=== PATIENT | female | born 1945 | race Caucasian/White ===

== ENCOUNTER 2017-06-19 11:01 | Observation (INO) | payer MEDICARE ==
--- OUTSIDE RECORDS SUMMARY | 2017-06-19 11:27 | XMS REPORT ---
:1945 External Reference #:[id number] Author Organization [facility] Address [address] [address] Phone [phone] Care Team Providers Name Role Phone Cata Holland MD Primary Care Physician Unavailable Payers Type Date Identification Payment Subscriber Numbers Provider Health Maintenance Effective: Policy Number: Medicare Ha Ramos ([facility]) 05/04/2012 [id number] o Group Number: [id number] [address] [address] PayID: [id number] [place] [address] Problems Date Description Provider Status Onset: 08/09/2014 Essential tremor Uzma Moss M.D. Active Family History Date Family Member(s) Problem(s) Comments General Heart Disease General Cancer Social History Type Date Description Comments Lives With Spouse Occupation Telecommunication Lines Repairer ETOH Use Denies alcohol use Smoking Patient has never smoked Exercise Type/Frequency Exercises regularly Allergies, Adverse Reactions, Alerts Date Description Reaction Status Severity Comments 05/17/2014 Antivenin active 06/05/2017 Epinephrine active 06/13/2013 NKDA inactive 05/17/2014 NKDA inactive 06/05/2017 NKDA inactive Medications Medication Date Status Form Strength Qnty SIG Indications Ordering Provider Primidone 06/05/ Active Tablets 50mg 30tabs take 05/05 G25.0 Uzma 2018 tablet by jeffrey Moss at M.D. bedtime, may increase to 1 tablet at bedtime Levothyroxine / Active Tablets 88mcg 1 PO qd Unknown Sodium 0000 Metoprolol / Active Tablets ER 12.5mg 1 PO qd Unknown Succinate ER 0000 24HR Lutein / Active Tablets 10mg by mouth Unknown 0000 daily Glucosamine / Active Capsules 1500Com 1 po qd Unknown Chondroitin 0000 1500 Complex Vitamin B-12 CR / Active Tablets ER 1000mcg 1 po qd Unknown 0000 Red Yeast Rice / Active Capsules 600mg 1 by mouth Unknown 0000 twice a day Levothyroxine / Active Tablets 88mcg 1/2 tab by Unknown Sodium 0000 mouth once a week Vitamin D / Active Tablets ?Dose 1 tab by Unknown 0000 mouth everyday Allergy / Active Capsules ?Dose Unknown Medication 0000 Percocet 07/11/ Hx Tablets 5-325mg 60tabs 1-2 tabs Andrew 2014 - by mouth Braulio 08/08/ q4-6 hours M.D. 2014 as needed pain Pantoprazole / Hx Tablets DR 40mg 1 PO qd Unknown Sodium - 2014 Langley 3 / Hx Capsules 1200mg 90caps po qd Unknown - 2017 Aspirin / Hx Tablets 81mg 1 po qd Unknown - 2014 Vital Signs Date Vital Result Comment 06/05/2017 Height 64 inches 5'4" Weight 142.00 lb w/shoes Heart Rate 76 /min BP Systolic Sitting 118 mmHg LA reg cuff BP Diastolic Sitting 64 mmHg LA reg cuff Respiratory Rate 20 /min BMI (Body Mass Index) 24.4 kg/m2 10/31/2014 Height 64 inches 5'4" Weight 144.00 lb Pain Level 3 with certain movement BMI (Body Mass Index) 24.7 kg/m2 08/31/2014 Height 64 inches 5'4" Weight 144.00 lb Pain Level 3 BMI (Body Mass Index) 24.7 kg/m2 08/09/2014 Height 64 inches 5'4" Weight 144.00 lb Heart Rate 68 /min BP Systolic Sitting 112 mmHg BP Diastolic Sitting 66 mmHg Respiratory Rate 16 /min BMI (Body Mass Index) 24.7 kg/m2 07/31/2014 Height 64 inches 5'4" Weight 135.00 lb Body Temperature 96.5 F BMI (Body Mass Index) 23.2 kg/m2 07/11/2014 Height 64 inches 5'4" Weight 135.00 lb Heart Rate 73 /min BP Systolic 114 mmHg BP Diastolic 70 mmHg BMI (Body Mass Index) 23.2 kg/m2 06/13/2013 Heart Rate 66 /min BP Systolic Sitting 102 mmHg BP Diastolic Sitting 60 mmHg Respiratory Rate 16 /min Results Description No Information Procedures Date CPT Code Description Status 07/21/2014 90572 Arthroscopy Shoulder Debridement Extensive Completed 07/21/2014 56705 Arthroscopy Shoulder Debridement Extensive Completed Encounters Type Date Location Provider CPT E/M Dx Office Visit 06/05/2017 [facility] Uzma Moss M.D. 58305 G25.0 9:00a [facility] Office Visit 10/31/2014 [facility] M.D. 25380 V54.89 2:15p [facility] Office Visit 08/09/2014 [facility] Uzma Moss M.D. 57675 333.1 3:45p [facility] Office Visit 05/22/2014 [facility] M.D. 36853 840.4 9:00a [facility] Office Visit 06/13/2013 [facility] Uzma Moss M.D. 10180 333.1 11:00a [facility] 389.9 Office Visit 06/14/2012 11:15a [facility] Uzma Moss M.D. 04429 333.1 [facility] Plan of Care Future Appointment(s):09/24/2017 10:30 am - Uzma Moss M.D. at [facility]06/05/2017 - Uzma Moss M.D.G25.0 Essential tremorNew Medication:Primidone 50 mgFollow up:3-4 months
[2017-06-19] MEDS ORDERED: Nitroglycerin TAB 0.4 MG* 0.4 MG TAB SL ONE (11:28)
[2017-06-19] MEDS ORDERED: Aspirin Low Dose CHEW TAB* 81 MG PO ONE (11:28)
--- NOTE | 2017-06-19 11:41 | RAD ---
HISTORY: Chest pain COMPARISONS: None VIEWS: 1: frontal portable view of the chest at 11:25 AM FINDINGS: LINES AND TUBES: None. CARDIOMEDIASTINAL SILHOUETTE: The cardiomediastinal silhouette is normal for portable technique. PLEURA: The costophrenic angles are sharp. No pleural abnormalities are noted. LUNG PARENCHYMA: There is hyperinflation. ABDOMEN: The upper abdomen is clear. There is no subphrenic gas. BONES AND SOFT TISSUES: No bone or soft tissue abnormalities are noted. IMPRESSION: COPD. NO ACTIVE CARDIOPULMONARY DISEASE.
[2017-06-19 11:51] LABS: ABS Basophils 0.1 10^3/ul (0-0.2); ABS Eosinophils 0.1 10^3/ul (0-0.6); ABS Lymphocytes 1.7 10^3/ul (1.0-4.8); ABS Monocytes 0.5 10^3/ul (0-0.8); ABS Neutrophils 3.8 10^3/ul (1.5-7.7); ABS Nucleated RBC 0 10^3/ul; Eosinophil % 1.5 % (0-6); Hematocrit 39 % (35-47); Hemoglobin 13.2 g/dl (12.0-16.0); Lymphocyte % 26.9 % (25-47); Mean Corpuscular HGB Conc 34 g/dl (31-36); Mean Corpuscular Hemoglobin 32 pg (27-31); Mean Corpuscular Volume 95 fL (80-97); Mean Platelet Volume 8 um3 (7.4-10.4); Nucleated Red Blood Cells % 0; Platelet Count 264 10^3/ul (150-450); Red Cell Distribution Width 13 % (10.5-15); White Blood Count 6.2 10^3/ul (3.5-10.8)
[2017-06-19 12:10] LABS: EGFR Non-African American 94.6 (>60)
[2017-06-19] MEDS ORDERED: Nitroglycerin 2% OINT* 1 GM PAK TOPICAL ONE (12:16)
[2017-06-19] MEDS ORDERED: Nitroglycerin TAB 0.4 MG* 0.4 MG TAB SL PRN (14:30)
[2017-06-19] MEDS ORDERED: Acetaminophen TAB* 325 MG PO PRN (14:31)
[2017-06-19] MEDS ORDERED: Ondansetron INJ* 2 MG/ML VIAL IV PRN (14:31)
[2017-06-19] MEDS ORDERED: Enoxaparin(*) 40 MG/0.4 ML SYR SUBCUT SCH (15:00)
[2017-06-19] MEDS: Levothyroxine TAB* 88 MCG TAB PO SCH (20:04)
[2017-06-19] MEDS ORDERED: Primidone TAB(*) 50 MG PO SCH (21:00)
--- NOTE | 2017-06-19 21:43 | HP ---
CC: Dr. Holland; Dr. Escobar * HISTORY AND PHYSICAL: DATE OF ADMISSION: 06/19/17 PRIMARY CARE PROVIDER: Dr. Holland. WAX ENGRAVER: Dr. Escobar. HEALTHCARE PROXY: Her . CODE STATUS: DNR, discussed with patient and her . SOURCE OF INFORMATION: History obtained from interview of patient and her . RELIABILITY: Good. CHIEF COMPLAINT: Chest pain. HISTORY OF PRESENT ILLNESS: This is a 71-year-old female, past medical history most notable for SVT, on low dose metoprolol, who had an episode of plantar fasciitis, from which she became less mobile until approximately the end of May, 05/25/17. She started to walk and exercise again and she started to notice on and off chest pain. She noticed that the pain was most severe when performing maximal exertion such as walking up a steep hill. She also experienced chest pain on one occasion after increased stress. The pain has been described as substernal, aching, radiating to her left neck, not associated with lightheadedness, nausea, vomiting, diaphoresis, loss of consciousness or shortness of breath. She has noticed the pain approximately 3 to 4 times per week, it was most severe on Thursday, had an episode of stress, but has also had it today after walking up a steep hill. The pain lasts for 15 minutes to several hours, but gradually subsides over that time. She has not had such pain prior to the end of May as indicated above. She has noticed chills, but no recent cough, fevers, nausea, vomiting, diarrhea, constipation, urinary symptoms. She had the medication changes to include the addition of primidone approximately 1 week prior to this visit for her tremor. PAST MEDICAL HISTORY: Includes; 1. Hypothyroidism. 2. SVT. 3. Essential tremor. 4. History of rotator cuff tendon repair. 5. Tonsillectomy. 6. Rhinoplasty. 7. Hand tendon repair. 8. Basal cell carcinoma removal from her forehead. MEDICATIONS: Reviewed, include; 1. Lutein 20 mg daily. 2. Glucosamine and chondroitin collagen combination 1 cap daily. 3. Cyanocobalamin 500 mcg daily. 4. Vitamin D 400 units daily. 5. Primidone 50 mg at bedtime. 6. Metoprolol succinate 12.5 mg daily. 7. Cetirizine 10 mg daily. 8. Ascorbic acid 500 mg daily. 9. Synthroid 44 mcg on Saturday and 88 mcg daily. ALLERGIES: ANTI-SNAKE VENOM. FAMILY HISTORY: Father from heart failure at age 67, unclear if ischemic in nature. History of diabetes. SOCIAL HISTORY: No tobacco or illicits. Has smoked marijuana in the past occasionally for pain relief, still practices Rivera-Chi. REVIEW OF SYSTEMS: Include chest pain with exertion, an episode of chills with the chest pain. Otherwise, all other systems reviewed are negative. PHYSICAL EXAMINATION GENERAL: Appears stated age, sitting up in bed, interactive, pleasant, no apparent distress. VITAL SIGNS: When seen by this author, 103/58, heart rate 77, respiratory rate 16, 96% on room air, T-max 98.8. HEENT: Oropharynx is clear. She has moist mucous membranes. Her sclerae are anicteric. NECK: She has JVD 2 inches below the angle of her jaw at 40 degrees. No bruits. LUNGS: Clear to auscultation bilaterally. HEART: Regular rate and rhythm. No murmurs, rubs, or gallops. ABDOMEN: Soft, nontender, nondistended. EXTREMITIES: Warm and well perfused. She has trace lower extremity edema, 2+ peripheral pulses, resting tremor. NEUROLOGIC: Alert and oriented x3. Cranial nerves II through XII are intact. 5/5 strength throughout. LABORATORY DATA: Labs are reviewed, notable for troponin I 0.00. White blood cell count 6.2, hemoglobin 13.2, platelets 264,000. IMAGING: Data reviewed. EKG: Notable for normal sinus rhythm. Normal limit axis. Early R-wave progression. No ST or T-wave changes. Chest x-ray: Impression: COPD with hyperinflation. ASSESSMENT AND PLAN: This is a 71-year-old female presenting with exertional chest pain, new onset at the end of May. 1. Angina: The patient not on an aspirin, has not had the episode twice in the last day, 24 to 48 hours. Does not have multiple risk factors, although she does have a family history, although not early and not known whether is ischemic. I am concerned for cardiac etiology of her chest pain given reproducible pain with exertion. She received full dose aspirin in the emergency room. Continue metoprolol. Trend troponins repeat EKG in the morning. I think she warrants a stress test, although not on an emergent basis , given ongoing nature of this problem and reproducible symptoms. We would plan on discharge home with followup next week for stress test if troponins remain negative, EKG in the morning is unchanged and telemetry monitoring is normal. Would recommend walking the patient prior to discharge to evaluate for recurrent chest pain. Continue aspirin 81 mg as well as metoprolol 12.5 mg. Check fasting lipids in the morning. I discussed this with Dr. Sapp, the on-call sales operations specialist, who is in agreement of plan. 2. Hypothyroidism: Add on TSH and then continue Synthroid on home doses. 3. Supraventricular tachycardia: Continue Toprol as above. 4. Tremor: Continue primidone 50 mg in the evening. 5. DVT prophylaxis: Lovenox. [id number]/[facility] #: [id number] [facility]PITALDe[facility]
[2017-06-20] MEDS ORDERED: Levothyroxine TAB* 88 MCG TAB PO SCH (06:00)
[2017-06-20] MEDS: Levothyroxine TAB* 88 MCG TAB PO SCH (06:16)
[2017-06-20] MEDS ORDERED: Cholecalciferol TAB* 400 UNIT PO SCH (09:00)
[2017-06-20] MEDS ORDERED: Cyanocobalamin TAB* 500 MCG PO SCH (09:00)
[2017-06-20] MEDS ORDERED: Aspirin EC Low Dose* 81 MG TAB.EC PO SCH (09:00)
[2017-06-20] MEDS ORDERED: Cetirizine* 10 MG TAB PO SCH (09:00)
[2017-06-20] MEDS ORDERED: Ascorbic Acid TAB* 500 MG PO SCH (09:00)
[2017-06-20] MEDS ORDERED: Metoprolol Succinate XL TAB* 25 MG PO SCH (09:00)
[2017-06-20 11:18] VITALS: BP 115/67
--- NOTE | 2017-06-21 10:57 | DS ---
CC: Dr. Cata Holland; Dr. Escobar * DISCHARGE SUMMARY: DATE OF ADMISSION: 06/19/17 DATE OF DISCHARGE: 06/20/17 PRIMARY CARE PROVIDER: Cata Holland MD. PRIMARY RIGGING SLINGER: Monty Escobar MD. PROVIDER: Khang Arellano NP. ATTENDING PHYSICIAN: Andrew Oseguera MD * (as dictated by Khang Arellano NP). PRIMARY DISCHARGE DIAGNOSES: 1. Chest pain and angina. 2. EKG changes with T-wave flattening in leads V2 through V4. SECONDARY DISCHARGE DIAGNOSES: 1. Hypothyroidism. 2. Supraventricular tachycardia. 3. Essential tremor. 4. History of rotator cuff tendon repair. 5. Tonsillectomy. 6. Rhinoplasty. 7. Hand tendon repair. 8. Basal carcinoma removal from forehead. MEDICATIONS AT DISCHARGE: 1. Lutein 20 mg daily. 2. Glucosamine/chondroitin combination tablet one capsule daily. 3. Cyanocobalamin 500 mcg daily. 4. Vitamin D 400 units daily. 5. Primidone 50 mg at bedtime. 6. Metoprolol succinate 12.5 mg daily. 7. Cetirizine 10 mg daily. 8. Ascorbic acid 500 mg daily. 9. Levothyroxine 88 mcg daily except for Saturdays when she takes 44 mcg. New medications at discharge: 1. Aspirin 81 mg daily. HOSPITAL COURSE OF STAY: For full details, please refer to the H and P provided by Dr. Valdez, on admission. In summary, this is a 71-year-old female with a past medical history most notable for SVT, on low dose metoprolol who presented to the ER on 06/19/17 with concern for substernal chest pain that radiated to the left neck, that was not associated with lightheadedness, nausea , vomiting, diaphoresis, loss of consciousness, or shortness of breath. The pain is reproducible with exertion and there was concern for cardiac etiology. Other risk factors for the patient includes a family history, although the full details of the family history is unknown as well as 2 episodes within a 24 to 48 -hour. She was previously on aspirin and has no known cardiac history. She denies any history of smoking or hypertension. She was admitted under observation and had 3 negative troponins of 0.00 each time. Her lipid profile on 06/20/17, which was fasting showed triglycerides of 140, cholesterol 182, LDL of 106, and HDL of 47. Her TSH was 1.94. She denied chest pain for her whole stay and states that she has been feeling well and has been requesting to go home. However, her repeat EKG from the morning of 06/20/17 shows these new EKG changes where there are some T-wave inversions seen in leads V2 and V3 as well as flattening in leads V4, V5, and V6. LOUANN score listed the patient a score of 2 for the aforementioned factors of family history and 2 episodes in the preceding time period prior to admission, which does allow for outpatient stress testing. However, given that these EKG changes appeared just prior to discharge, I did express my concern to the patient and offered her to stay for a nuclear medicine test here in the hospital. She declined stating that she would be willing to come back as soon as Thursday for stress test, but we will prefer to go home. She is in understanding of the changes of her EKG and how this may indicate ischemia as well as my concern for her exertional chest pain. We did review warning signs at home, which does include persistent chest pain or chest pain occurring at rest with other symptoms, which were included in her discharge instructions and the patient is in agreement to come back to the ER should these occur while she is at home. She has been advised against any further strenuous activity. I did also review the EKG and limited history and side consult with the on-call tattoo and body artist who was helpful in assisting to get the patient seen at [facility] on Thursday for her stress test. The capsule maker will contact the patient with an appointment time for her on Thursday. Again in the interim period, the patient has been advised against strenuous activity and should be monitored closely at home. No other concerns or reproducible chest pain occurred here in the hospital and the patient is otherwise stable for discharge. She has been advised to continue a low-fat, heart healthy diet for which education was provided and to follow up with her PCP within the week. She should continue baby aspirin. PHYSICAL EXAMINATION: Vital Signs: Upon discharge, temperature 97.6; pulse rate 65; respiratory rate 16; blood pressure 115/67; O2 saturation 100% on room air. General: This is an older female who appears in her stated age. She is ambulating in the room. She is interactive, pleasant, and in no acute distress. HEENT: Head is atraumatic, normo-cephalic. Face is symmetrical. Pupils are equal, round and reactive to light. Extraocular movements are intact. Oral mucosa is moist. There is no oropharyngeal erythema or exudate. Neck: Supple. No lymphadenopathy appreciated. Lungs: Clear to auscultation bilaterally. Cardiac: S1, S2 normal. Regular rate and rhythm. No murmurs, rubs, or gallops. There is trace peripheral edema most notably in the pretibial area. Abdomen: Soft, nontender, and nondistended. Bowel sounds are normoactive. Extremities: No clubbing or cyanosis present. She moves all extremities. Neuro: Alert and oriented x3. Cranial nerves II through XII are grossly intact. Strength is 5/5 throughout and speech is clear. OUTPATIENT FOLLOWUP NEEDS: Again, Ms. Soria is to have a stress test currently and the works to be scheduled for Thursday as an outpatient and the time is pending. The [facility] capsule maker has been contacted and will update myself and the patient what the plan. The patient has been advised to return to the ER , should her symptoms persist or return, or if there is any other concern. DIET: Heart healthy diet. ACTIVITY: No strenuous activity. CONDITION: Stable at this time. DISPOSITION: To home with close followup. TIME SPENT: Time spent on this discharge was approximately 45 minutes. Again, this is only a brief summary of the patient's hospital course of stay. For full details, please refer to the full medical record. If you have any further questions or need further assistance, please feel free to contact me at . KHANG ARELLANO NP [id number]/[facility] #: [id number] ERIN
--- NOTE | 2017-06-21 22:47 | ED ---
Dave Chaudhary Jennifer, scribed for Jorge Shah MD on 06/19/17 at 1128 . HPI Chest Pain - HPI Summary HPI Summary: The patient is a 71 year old female who complains of tightness and pain in the chest that began two days ago. The patient describes that she usually feels chest pain after exercising, but she was stressed two days ago when the pain appeared. She rates the pain a 2 or 3 out of 10 in the ED today. The patient adds that the pain sometimes radiates into the jaw. She additionally complains of chills. The patient denies fever, trouble breathing, and pain or swelling in the legs. - History of Current Complaint Chief Complaint: EDChestPainROMI Time Seen by Provider: 06/19/17 11:17 Hx Obtained From: Patient Onset/Duration: Started Days Ago - two days, Still Present Timing: Intermittent - Goes from tightness to pain Initial Severity: Mild Current Severity: Mild Pain Intensity: 3 Pain Scale Used: 0-10 Numeric Chest Pain Location: Mid Sternal Chest Pain Radiates: Yes Chest Pain Radiates To:: Jaw Character: Tightness Aggravating Factor(s): Exertion Alleviating Factor(s): Nothing Associated Signs and Symptoms: Positive: Negative - fever, trouble breathing, pain or swelling in legs, Chills - Allergy/Home Medications Allergies/Adverse Reactions: Allergies Allergy/AdvReac Type Severity Reaction Status Date / Time ANTI-SNAKE VENOM Allergy WELTS, Uncoded 07/21/14 10:02 SWELLING ENVIRONMENTAL Allergy ITCHY Uncoded 07/21/14 10:02 WATERY EYES, CONGESTION Home Medications: Home Medications Ascorbic Acid TAB* [Vitamin C TAB*] 500 mg PO DAILY 06/19/17 [History Confirmed 06/19/17] Cetirizine* [ZyrTEC 10 MG TAB*] 10 mg PO DAILY 06/19/17 [History Confirmed 06/19] Cholecalciferol TAB* [Vitamin D TAB*] 400 unit PO DAILY 06/19/17 [History Confirmed 06/19/17] Cyanocobalamin TAB* [Vitamin B12 TAB*] 500 mcg PO DAILY 06/19/17 [History Confirmed 06/19/17] Glucosam/Chondr/Collagn/Hyalur [Th Glucosamine/Chondroiti] 1 cap PO DAILY [History Confirmed 06/19/17] Levothyroxine TAB* [Synthroid TAB*] 44 mcg PO .Saturdays06/19/17 [History Confirmed 06/19/17] Lutein 20 mg PO DAILY 06/19/17 [History Confirmed 06/19/17] Metoprolol Succinate XL TAB* [Toprol XL TAB*] 12.5 mg PO DAILY 06/19/17 [ History Confirmed 06/19/17] Primidone TAB(*) [Mysoline TAB(*)] 50 mg PO BEDTIME 06/19/17 [History Confirmed 06/19/17] PMH/Surg Hx/FS Hx/Imm Hx Endocrine/Hematology History: Reports: Hx Thyroid Disease - HYPOTHYROIDISM Denies: Hx Diabetes Cardiovascular History: Denies: Hx Hypertension, Hx Pacemaker/ICD GI History: Reports: Hx Gastroesophageal Reflux Disease - HX OF, NO PROBLEMS NOW , NO MEDS History: Denies: Hx Renal Disease Musculoskeletal History: Reports: Hx Arthritis - BILATERAL HANDS, FINGERS, BIG TOE Denies: Hx Rheumatoid Arthritis, Hx Osteoporosis Sensory History: Reports: Hx Contacts or Glasses - CONTACTS WILL WEAR GLASSES DAY OF SURGERY Denies: Hx Hearing Aid Opthamlomology History: Reports: Hx Contacts or Glasses - CONTACTS WILL WEAR GLASSES DAY OF SURGERY Neurological History: Reports: Other Neuro Impairments/Disorders - HX OF DIZZINESS, NONE RECENTLY Psychiatric History: Denies: Hx Panic Disorder - Cancer History Cancer Type, Location and Year: BASAL CELL CARCINOMA Hx Chemotherapy: No Hx Radiation Therapy: No - Surgical History Surgery Procedure, Year, and Place: PLASTIC SURGERY ON NOSETONSILECTOMY A CHILDLT HAND REPAIR SEVERED TENDONBASAL CELL CARCINOMA REMOVED LT SIDE OF FOREHEAD. Hx Anesthesia Reactions: No Infectious Disease History: No Infectious Disease History: Denies: Traveled Outside the [place] in Last 30 Days - Family History Known Family History: Positive: Cardiac Disease - Father - Social History Alcohol Use: Occasionally Substance Use Type: Reports: Marijuana Substance Use Comment - Amount & Last Used: WEEKLY Smoking Status (MU): Never Smoked Tobacco Review of Systems Positive: Chills. Negative: Fever Negative: Erythema Negative: Sore Throat Positive: Chest Pain Negative: Shortness Of Breath, Cough Negative: Abdominal Pain, Vomiting, Nausea Negative: dysuria, hematuria Negative: Myalgia, Edema Negative: Rash - Dizziness All Other Systems Reviewed And Are Negative: Yes Physical Exam - Summary Physical Exam Summary: Constitutional: Well-developed, Well nourished, Alert. (-) Distressed Skin: Warm, Dry HENT: Normocephalic; Atraumatic Eyes: Conjunctiva normal Neck: Musculoskeletal ROM normal neck. (-) JVD, (-) Stridor, (-) Tracheal deviation Cardio: Rhythm regular, rate normal, Heart sounds normal; Intact distal pulses; The pedal pulses are 2+ and symmetric. Radial pulses are 2+ and symmetric. (-) Murmur Pulmonary/Chest wall: Effort normal. (-) Respiratory distress, (-) Wheezes, (-) Rales Abd: Soft, (-) Tenderness, (-) Distension, (-) Guarding, (-) Rebound Musculoskeletal: (-) Edema Lymph: (-) Cervical adenopathy Neuro: Alert, Oriented x3 Psych: Mood and affect Normal Triage Information Reviewed: Yes Vital Signs On Initial Exam: Initial Vitals Temp Pulse Resp BP Pulse Ox 98.8 F 66 20 133/75 99 06/19/17 11:06 06/19/17 11:06 06/19/17 11:06 06/19/17 11:06 06/19/17 11:06 Vital Signs Reviewed: Yes Diagnostics - Vital Signs Vital Signs Temp Pulse Resp BP Pulse Ox 06/19/17 11:06 98.8 F 66 20 133/75 99 - Laboratory Result Diagrams: 06/19/17 11:35 06/19/17 11:35 Lab Statement: Any lab studies that have been ordered have been reviewed, and results considered in the medical decision making process. - Radiology CXR Xray Interpretation: No Acute Changes - COPD. NO ACTIVE CARDIOPULMONARY DISEASE. Dr. Shah has reviewed this report. Radiology Interpretation Completed By: Radiologist - EKG 11:12 Cardiac Rate: NL EKG Rhythm: Sinus Rhythm - 65 BPM EKG Interpretation: No STEMI Re-Evaluation - Re-Evaluation First Eval Re-Evaluation Time: 12:18 Change: Improved Comment: Chest pain relieved with NTG. Chest Pain Course/Dx - Course Assessment/Plan: The patient is a 71 year old female who complains of tightness and pain in the chest that began two days ago. In the ED course, the patient was given Aspirin and NTG. All of her chest pain is reproducible with exertion. Her chest pain was relieved with NTG. EKG and CXR were obtained. No STEMI currently. The patient is diagnosed with Angina. The patient [place] [facility] [place] - Diagnoses Provider Diagnoses: Angina - Provider Notifications Discussed Care Of Patient With: Gary Valdez Time Discussed With Above Provider: 13:01 Instructed by Provider To: Admit As Inpatient Discharge - Discharge Plan Condition: Good Disposition: ADMITTED TO [facility] Referrals: Cata Holland MD [Primary Care Provider] - The documentation as recorded by the Dave lazo Jennifer accurately reflects the service I personally performed and the decisions made by Pablo alfonso Jerry, MD.
== END 2017-06-20 12:20 | disposition home or self-care (01) ==
LOC: ED 11:01 → MEDTELE 14:31
PROVIDERS: ADMIT Internal Medicine; ATTEND Internal Medicine
DX: I20.9 Angina pectoris, unspecified (principal); R07.9 Chest pain, unspecified; R94.31 Abnormal electrocardiogram [ECG] [EKG]; M72.2 Plantar fascial fibromatosis; R68.83 Chills (without fever); E03.9 Hypothyroidism, unspecified; I47.1 Supraventricular tachycardia; G25.0 Essential tremor; Z98.890 Other specified postprocedural states; Z90.89 Acquired absence of other organs; Z85.828 Personal history of other malignant neoplasm of skin
CPT/HCPCS: 36415; 71045; 80053; 80061; 83605; 84443; 84484; 85025; 93005; 96374; 99284; A9270-GY; G0378; J1650

== ENCOUNTER 2018-02-03 09:59 | Day surgery (SDC) | payer MEDICARE ==
[~2018-02-03 09:59] MED LIST: Acetaminophen TAB* 325 MG PO PRN; Buffered Lidocaine 0.9% SYRIN* 5 ML/SYR SYRINGE INTRADERM ONE
[2018-02-03] MEDS ORDERED: Midazolam* 1 MG/ML 2 ML VIAL (2 MG) ONE (12:23)
[2018-02-03 13:05] VITALS: BP 106/59
[2018-02-03] MEDS ORDERED: Povidone Iodine 5% OPTH* 30 ML BTL ONE (15:45)
[2018-02-03] MEDS ORDERED: Proparacaine 0.5% OPHTH.SOL* 15 ML BTL ONE (15:45)
[2018-02-03] MEDS ORDERED: acetaZOLAMIDE TAB* 250 MG ONE (15:45)
[2018-02-03] MEDS ORDERED: Lidocaine 2% EPI 1:200000 MPF*10-20 ML VIAL ONE (15:45)
[2018-02-03] MEDS ORDERED: Neomycin/Polymy/Dex OPTH.SUSP* MAXITROL 0.1% 5 ML ONE (15:45)
[2018-02-03] MEDS ORDERED: Phenylephrine 2.5% OPTH.SOL* 2 ML BTL ONE (15:45)
[2018-02-03] MEDS ORDERED: Lidocaine 1%* 5 ML VIAL ONE (15:45)
[2018-02-03] MEDS ORDERED: Cyclopentolate 1% OPTH.SOL* 2 ML BTL ONE (15:45)
[2018-02-03] MEDS ORDERED: Ketorolac 0.5% OPHTH (NF) 0.5 % 5 ML BTL ONE (15:45)
--- NOTE | 2018-02-04 03:25 | OP ---
DATE OF OPERATION: 02/03/18 - [facility] DATE OF : 43 SURGEON: Kyaw Alfredo M.D. PREOPERATIVE DIAGNOSIS: Cataract, right eye. POSTOPERATIVE DIAGNOSIS: Cataract, right eye. OPERATIVE PROCEDURE: Extracapsular cataract extraction with intraocular lens implant right eye. DESCRIPTION OF PROCEDURE: The patient was brought to the operating room after being given 1/2% Alcaine with epinephrine drops in the preoperative area. The eye was prepped and draped in the usual sterile fashion. Sterile drape and eyelid speculum were placed. Again, topical 1/2% Alcaine with epinephrine was given. A paracentesis incision was made at the 9 o'clock position with the No.75 blade. Clear cornea incision 2.2 x 2.2-mm was created at the 12 o'clock position starting at the anterior limbus using the 2.2-mm keratome. The anterior chamber was irrigated with 0.4 mL of 1% non-preservative intracameral lidocaine and filled with DisCoVisc. A capsulorrhexis was completed using the cystotome and the Utrata forceps. Hydrodissection was performed with balanced salt solution. The lens nucleus was removed with the Phacoemulsification handpiece without incident. Cortex was removed with the irrigation-aspiration handpiece. The capsular bag was re-inflated using DisCoVisc and an [id number] implant was inserted with the shooter. The irrigation-aspiration handpiece was used to remove all residual DisCoVisc. The eye was refilled with balanced salt solution and the wound checked and found to be watertight. Topical Maxitrol drops were given. [id number]/[facility] #: [id number] MTDD
== END 2018-02-10 12:59 | disposition home or self-care (01) ==
LOC: OREAST 09:59
PROVIDERS: ATTEND Specialist
DX: H25.811 Combined forms of age-related cataract, right eye (principal); H43.813 Vitreous degeneration, bilateral; I10 Essential (primary) hypertension; Z85.828 Personal history of other malignant neoplasm of skin; G25.0 Essential tremor; E03.9 Hypothyroidism, unspecified; I47.1 Supraventricular tachycardia; E78.5 Hyperlipidemia, unspecified
CPT/HCPCS: A9270-GY; J2250; V2632

== ENCOUNTER → 2018-02-10 10:05 | Day surgery (SDC) | payer MEDICARE ==
[~2018-02-10 10:05] MED LIST changes: +Cyclopentolate 1% OPTH.SOL* 2 ML BTL ONE; +Ketorolac 0.5% OPHTH (NF) 0.5 % 5 ML BTL ONE; +Lidocaine 1%* 5 ML VIAL ONE; +Lidocaine 2% EPI 1:200000 MPF*10-20 ML VIAL ONE; +Midazolam* 1 MG/ML 2 ML VIAL (2 MG) ONE; +Neomycin/Polymy/Dex OPTH.SUSP* MAXITROL 0.1% 5 ML ONE; +Phenylephrine 2.5% OPTH.SOL* 2 ML BTL ONE; +Povidone Iodine 5% OPTH* 30 ML BTL ONE; +Proparacaine 0.5% OPHTH.SOL* 15 ML BTL ONE; +acetaZOLAMIDE TAB* 250 MG ONE; +fentaNYL* 50 MCG/ML 2 ML VIAL (100 MCG VIAL) ONE
[2018-02-10 12:59] VITALS: BP 97/54
--- NOTE | 2018-02-10 13:30 | OP ---
DATE OF OPERATION: 02/10/2018. DATE OF : 1945. SURGEON: Kyaw Alfredo M.D. PREOPERATIVE DIAGNOSIS: Cataract left eye. POSTOPERATIVE DIAGNOSIS: Cataract left eye. OPERATIVE PROCEDURE: Extracapsular cataract extraction with intraocular lens implant left eye. PROCEDURE: The patient was brought to the operating room after being given 1/2% Alcaine with epineph rine drops in the preoperative area. The eye was prepped and draped in the usual sterile fashion. S terile drape and eyelid speculum were placed. Again, topical 1/2% Alcaine with epinephrine was given . A paracentesis incision was made at the 3 o'clock position with the No.75 blade. Clear cornea inc ision 2.2 x 2.2-mm was created at the 6 o'clock position starting at the anterior limbus using the 2. 2-mm keratome. The anterior chamber was irrigated with 0.4 mL of 1% non-preservative intracameral li docaine and filled with DisCoVisc. A capsulorrhexis was completed using the cystotome and the Utrata forceps. Hydrodissection was performed with balanced salt solution. The lens nucleus was removed wi th the Phacoemulsification handpiece without incident. Cortex was removed with the irrigation-aspira tion handpiece. The capsular bag was re-inflated using DisCoVisc and an [id number] implant was insert ed with the shooter. The irrigation-aspiration handpiece was used to remove all residual DisCoVisc. The eye was refilled with balanced salt solution and the wound checked and found to be watertight. Topical Maxitrol drops were given. [id number]/[facility] #: [id number]
== END | disposition home or self-care (01) ==
LOC: OREAST 10:05
PROVIDERS: ATTEND Specialist
DX: H25.812 Combined forms of age-related cataract, left eye (principal); H43.813 Vitreous degeneration, bilateral; Z85.828 Personal history of other malignant neoplasm of skin; I10 Essential (primary) hypertension; E03.9 Hypothyroidism, unspecified; G25.0 Essential tremor; I47.1 Supraventricular tachycardia
CPT/HCPCS: A9270-GY; J2250; J3010; V2632

== ENCOUNTER 2019-03-29 11:00 | Emergency (ER) | payer SELFPAY ==
--- OUTSIDE RECORDS SUMMARY | 2019-03-29 11:11 | XMS REPORT | Continuity of Care Document ---
:1945 External Reference #:[id number] Author Name Uzma Moss M.D. (transmitted by agent of provider [facility]) Address [address], [place] [address] Care Team Providers Name Role Phone Cata Holland MD - Family Care Team Information Supervisor Decorating [phone] Medicine Problems Active Problems Provider Date Essential tremor Uzma Moss M.D. Onset: 08/09/2014 Social History Type Date Description Comments Sex Unknown ETOH Use Occasionally consumes once a month alcohol Tobacco Use Start: Unknown Patient has never smoked Recreational Drug Use Sporadically uses Marijuana Smoking Status Reviewed: 03/02/19 Patient has never smoked Exercise Type/Frequency Exercises regularly Allergies, Adverse Reactions, Alerts Active Allergies Reaction Severity Comments Date Antivenin 05/17/2014 Epinephrine 06/05/2017 Inactive Allergies NKDA 06/13/2013 NKDA 05/17/2014 NKDA 06/05/2017 Medications Active Medications SIG Qnty Indications Ordering Date Provider Primidone two tabs at hs 360tabs G25.0 Uzma Moss, 06/05/2017 50mg Tablets M.D. Levothyroxine Sodium 1 PO x 6 days Unknown and 1.5 tabs one 88mcg Tablets day per week Lutein 1 tablet po qd Unknown 20mg Tablets Glucosamine 1 po qd Unknown Chondroitin 1500 Complex 1500Com Capsules Vitamin B-12 CR 1 po qd Unknown 1000mcg Tablets ER Vitamin D 1 tab by mouth Unknown 1000Units everyday Tablets Vitamin C 1 by mouth every Unknown 1000mg Tablets day Magnesium 1 by mouth every Unknown 250mg Tablets day Metoprolol Succinate 1/2 tablet po Blegen, ER daily MD Cata 25mg Tablets ER 24HR Curcumin 1 tablet po qd Unknown 300mg Tablet Red Yeast Rice 1 by mouth every Unknown 600mg day Capsules Cetirizine HCL 1 by mouth every Unknown 10mg day Tablets History Medications Topiramate take 2 by mouth 60tabs G25.0 Uzma Moss, 11/12/2018 - 25mg each day M.D. 03/01/2019 Tablets Topiramate 1 by mouth every 90tabs G25.0 Uzma Moss, 11/10/2018 - 100mg day at bedtime M.D. 11/12/2018 Tablets Topiramate take 3 by mouth at 120tabs G25.0 Uzma Moss, 10/01/2018 - 25mg bedtime, taper up M.D. 11/10/2018 Tablets to 4 by mouth at bedtime after 1 week if tolerated Immunizations Description No Information Available Vital Signs Date Vital Result Comment 03/02/2019 9:38am Weight 136.50 lb Heart Rate 72 /min BP Systolic Sitting 100 mmHg BP Diastolic Sitting 60 mmHg Respiratory Rate 20 /min 10/01/2018 2:39pm Height 64 inches 5'4" Weight 135.00 lb Heart Rate 66 /min BP Systolic Sitting 104 mmHg BP Diastolic Sitting 68 mmHg Respiratory Rate 15 /min BMI (Body Mass Index) 23.2 kg/m2 Results Test Acquired Date Facility Test Result H/L Range Note Basic Metabolic 09/17/2018 [facility] Sodium 140 mmol/L Normal 135-145 Panel [address] [place] [address] [phone] Chloride 105 mmol/L Normal 101-111 Co2 Carbon Dioxide 30 mmol/L Normal 22-32 Glucose 80 mg/dL Normal 70-100 Blood Urea Nitrogen 14 mg/dL Normal 6-24 Creatinine 0.66 mg/dL Normal 0.51-0.95 BUN/Creatinine Ratio 21.2 High 8-20 Calcium 9.4 mg/dL Normal 8.6-10.3 Egfr Non- 87.5 >60 Egfr 105.9 >60 1 Potassium 5.2 mmol/L High 3.5-5.0 Anion Gap 5 mmol/L Normal 2-11 Douglas/Lambda Free 09/17/2018 [facility] Douglas Free 1.11 mg/dL 2 Light Chains Ser [address] [place] [address] [phone] Lambda Free Light Chain 1.95 mg/dL 3 Douglas/Lambda Free Light Chain 0.5692 4 Protein 09/17/2018 [facility] Total 6.1 Abnormal 6.3 - Electrophoresis [address] Protein(Pep) g/dL 7.9 [place] [address] [phone] Albumin 3.3 g/dL Abnormal 3.4-4.7 Alpha-1 Globulin 0.2 g/dL 0.1-0.3 Alpha-2 Globulin 0.9 g/dL 0.6-1.0 Beta Globulin 0.7 g/dL 0.7-1.2 Gamma Globulin 1.0 g/dL 0.6-1.6 Albumin/Globulin Ratio 1.21 M Brian 0.4 g/dL Impression See Comment 5 CBC Auto 09/17/2018 [facility] White Blood 5.1 10^3/uL Normal 3.5-10.[address] [place] [address] [phone] Red Blood Count 4.04 10^6/uL Normal 3.70-4.87 Hemoglobin 13.0 g/dL Normal 12.0-16.0 Hematocrit 39 % Normal 35-47 Mean Corpuscular Volume 95 fL Normal 80-97 Mean Corpuscular Hemoglobin 32 pg High 27-31 Mean Corpuscular HGB Conc 34 g/dL Normal 31-36 Red Cell Distribution Width 13 % Normal 10.5-15 Platelet Count 276 10^3/uL Normal 150-450 Mean Platelet Volume 7.9 fL Normal 7.4-10.4 Abs Neutrophils 3.0 10^3/uL Normal 1.5-7.7 Abs Lymphocytes 1.5 10^3/uL Normal 1.0-4.8 Abs Monocytes 0.5 10^3/uL Normal 0-0.8 Abs Eosinophils 0.1 10^3/uL Normal 0-0.6 Abs Basophils 0.0 10^3/uL Normal 0-0.2 Abs Nucleated RBC 0.0 10^3/uL Granulocyte % 58.3 % Lymphocyte % 29.3 % Monocyte % 10.2 % Eosinophil % 1.6 % Basophil % 0.6 % Nucleated Red Blood Cells % 0.1 Liver Function 09/17/2018 [facility] Total Protein 6.3 g/dL Low 6.4-8.[address] [place] [address] [phone] Albumin 4.0 g/dL Normal 3.2-5.2 Globulin 2.3 g/dL Normal 2-4 Albumin/Globulin Ratio 1.7 Normal 1-3 Total Bilirubin 0.30 mg/dL Normal 0.2-1.0 Direct Bilirubin 0.00 mg/dL Low 0.03-0.18 Alkaline Phosphatase 80 U/L Normal 34-104 Alt 16 U/L Normal 7-52 Ast 19 U/L Normal 13-39 1 Because ethnic data is not always readily available, this report includes an eGFR for both -Americans and non- Americans. The National Kidney Disease Education Program (NKDEP) does not endorse the use of the MDRD equation for patients that are not between the ages of 18 and 70, are , have extremes of body size, muscle mass, or nutritional status, or are non- or non-. According to the National Kidney Foundation, irrespective of diagnosis, the stage of the disease is based on the level of kidney function: Stage Description GFR(mL/min/1.73 m(2)) 1 Kidney damage with normal or decreased GFR 90 2 Kidney damage with mild decrease in GFR 60-89 3 Moderate decrease in GFR 30-59 4 Severe decrease in GFR 15-29 5 Kidney failure <15 (or dialysis) 2 REFERENCE VALUE 0.3300-1.94 3 REFERENCE VALUE 0.5700-2.63 4 REFERENCE VALUE 0.2600-1.65 Test Performed by: [facility] - [address] [address] 5 M-spike in gamma fraction. Size of monoclonal protein not changed significantly since 10/09/2017. Test Performed by: [facility] - [address] [address] Procedures Description No Information Available Medical Devices Description No Information Available Encounters Type Date Location Provider Dx Diagnosis Office Visit 10/01/2018 [facility] Uzma Moss, G25.0 Essential tremor 2:[facility]p [facility] Assessments Date Code Description Provider 03/02/2019 G25.0 Essential tremor Uzma Moss M.D. 03/02/2019 Z79.899 Other long term care pharmacist (current) drug therapy Uzma Moss M.D. 10/01/2018 G25.0 Essential tremor Uzma Moss M.D. Plan of Treatment Future Appointment(s):06/08/2019 9:30 am - Uzma Moss M.D. at [id number]/02/2019 - Uzma Moss M.D.G25.0 Essential tremorFollow up:3-4 monthsRecommendations:options: topiramate 25mg as needed, topiramate 25mg a day, and after 2 week, could try 50mg. Once you have figured out a dose, call and we can taper the primidone. If there is mood change with the topiramate at low dose, we will stop it. Gabapentin is another option.Z79.899 Other shelter (current) drug therapy Functional Status Description No Information Available Mental Status Description No Information Available Referrals Description No Information Available
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
[2019-03-29] MEDS ORDERED: NS 0.9% 1000 ML** 1,000 ML IV ONE (11:27)
[2019-03-29] MEDS ORDERED: Morphine 4 MG/ML VIAL (1 ml) 4 MG/ML VIAL IV ONE (11:27)
[2019-03-29 11:33] LABS: ABS Eosinophils 0.1 10^3/ul (0-0.6); ABS Lymphocytes 1.2 10^3/ul (1.0-4.8); ABS Monocytes 0.6 10^3/ul (0-0.8); ABS Neutrophils 4.2 10^3/ul (1.5-7.7); Eosinophil % 1.5 %; Hematocrit 39 % (35-47); Hemoglobin 13.1 g/dL (12.0-16.0); Lymphocyte % 19.2 %; Mean Corpuscular HGB Conc 34 g/dL (31-36); Mean Corpuscular Hemoglobin 32 pg (27-31); Mean Corpuscular Volume 96 fL (80-97); Mean Platelet Volume 7.3 fL (7.4-10.4); Platelet Count 254 10^3/uL (150-450); Red Blood Count 4.04 10^6 /uL (3.70-4.87); Red Cell Distribution Width 13 % (10-15); White Blood Count 6.1 10^3/uL (3.5-10.8)
[2019-03-29 12:00] LABS: Albumin 3.9 g/dL (3.2-5.2); Albumin/Globulin Ratio 1.6 (1-3); BUN/Creatinine Ratio 20.3 (8-20); Calcium 9.4 mg/dL (8.6-10.3); EGFR African American 109.8 (>60); EGFR Non-African American 90.7 (>60); Globulin 2.5 g/dL (2-4); Potassium 4.7 mmol/L (3.5-5.0); Total Bilirubin 0.6 mg/dL (0.2-1.0); Total Protein 6.4 g/dL (6.4-8.9)
[2019-03-29] MEDS ORDERED: Iohexol 300* (CONTRAST) 10 ML SDV IV ONE (12:48)
[2019-03-29 15:05] VITALS: BP 121/67
== END 2019-03-29 14:12 | disposition home or self-care (01) ==
LOC: ED 11:00
DX: S42.019A Nondisplaced fracture of sternal end of unspecified clavicle, initial encounter for closed fracture (principal); V49.50XA Passenger injured in collision with unspecified motor vehicles in traffic accident, initial encounter; Y92.410 Unspecified street and highway as the place of occurrence of the external cause; E03.9 Hypothyroidism, unspecified; I47.1 Supraventricular tachycardia; Z85.89 Personal history of malignant neoplasm of other organs and systems; Z88.8 Allergy status to other drugs, medicaments and biological substances
CPT/HCPCS: 36415; 71260; 74177; 80053; 83690; 84484; 85025; 93005; 96361; 96374; 99283; J2270; Q9967